=== PATIENT | female | born 1940 | race Hispanic/Latino ===

== ENCOUNTER 2019-01-11 08:41 | Day surgery (SDC) | payer MEDICARE ==
[~2019-01-11] VITALS: Ht 162.6 cm; Wt 89.8 kg
[~2019-01-11 08:41] MED LIST: ALEN70TA10 PO; CLON0.5T12 PO; DEXL30CA3 PO; FENT25PAT TD; FURO20TA4 PO; HYDR-4060 PO; LEVO175T9 PO; LISI-613 PO; SERT100T12 PO; SODIUM CHLORIDE 0.9% 1000ML 1,000 ML IV ONE
[2019-01-11 09:53] VITALS: BP 162/94
[2019-01-11] MEDS ORDERED: RANITIDINE (10:08)
[2019-01-11] MEDS ORDERED: PROPOFOL 10 MG/ML 20ML VIAL IV ONE (10:33)
[2019-01-11 10:49] VITALS: BP 131/59
[2019-01-11 10:55] VITALS: BP 116/65
[2019-01-11 11:00] VITALS: BP 119/65
[2019-01-11 11:05] VITALS: BP 100/73
[2019-01-11 11:15] VITALS: BP 157/76
== END 2019-01-11 11:30 | disposition home or self-care (01) ==
LOC: ENDO 08:41 → DAH 08:41 → ENDO 11:30
PROVIDERS: ATTEND Internal Medicine Gastroenterology
DX: K44.9 Diaphragmatic hernia without obstruction or gangrene (principal); K31.89 Other diseases of stomach and duodenum; K59.00 Constipation, unspecified; K57.30 Diverticulosis of large intestine without perforation or abscess without bleeding; K64.0 First degree hemorrhoids; Z86.010 Personal history of colon polyps; Z88.0 Allergy status to penicillin; Z88.1 Allergy status to other antibiotic agents; Z79.899 Other long term (current) drug therapy; Z82.49 Family history of ischemic heart disease and other diseases of the circulatory system; K21.9 Gastro-esophageal reflux disease without esophagitis; Z98.890 Other specified postprocedural states; I10 Essential (primary) hypertension; F32.9 Major depressive disorder, single episode, unspecified; E03.9 Hypothyroidism, unspecified; M81.0 Age-related osteoporosis without current pathological fracture; Z90.49 Acquired absence of other specified parts of digestive tract
CPT/HCPCS: 43239; 45378; 88305; A4606; J2704; J7030

== ENCOUNTER → 2020-05-27 | Outpatient (CLI) | payer MEDICARE ==
[~2020-05-27] MED LIST changes: -ALEN70TA10 PO; +ALEN70TA80 PO; -CLON0.5T12 PO; +CLON0.5T4 PO; -DEXL30CA3 PO; +RANITIDINE; -SODIUM CHLORIDE 0.9% 1000ML 1,000 ML IV ONE
== END | disposition home or self-care (01) ==
LOC: RAH 09:49
PROVIDERS: ATTEND Otolaryngology Plastic Surgery within the Head & Neck
DX: R49.0 Dysphonia (principal); R13.10 Dysphagia, unspecified; K21.9 Gastro-esophageal reflux disease without esophagitis
CPT/HCPCS: 74230; 92611

== ENCOUNTER 2021-03-17 07:09 | Inpatient (IN) | payer MEDICARE ==
[~2021-03-17] VITALS: Ht 152.4 cm; Wt 85.3 kg
[~2021-03-17 07:09] MED LIST changes: -LISI-613 PO; +LISI20TA24 PO; +SERT-440 PO; -SERT100T12 PO
[2021-03-17 07:45] LABS: BASOPHILS % (AUTO) 1.5 % (0.0-5.0); EOSINOPHILS % (AUTO) 2.9 % (0.0-8.0); HEMATOCRIT 38.5 % (36-48); LYMPHOCYTES % (AUTO) 32.5 % (21.0-51.0); MEAN CORPUSCULAR HEMOGLOBIN 30.5 pg (27.0-33.0); MEAN CORPUSCULAR HGB CONC 32.2 g/dL (32.0-36.0); MEAN CORPUSCULAR VOLUME 94.8 fL (79-99); MONOCYTES % (AUTO) 9.2 % (3.0-13.0); NEUTROPHILS % (AUTO) 53.7 % (40.0-77.0); PLATELET COUNT (AUTO) 194 K/uL (130-400); RED BLOOD CELL COUNT(AUTO) 4.06 MIL/uL (4.00-5.50); RED CELL DISTRIBUTION WIDTH 14.3 % (11.0-15.5); WHITE BLOOD COUNT (AUTO) 4.8 K/uL (4.8-10.8)
[2021-03-17 08:10] LABS: ALANINE AMINOTRANSFERASE 10 U/L (12-78); BILIRUBIN,TOTAL 0.7 mg/dL (0.2-1.0); CARBON DIOXIDE 29 mmol/L (21-32); CHLORIDE 105 mmol/L (101-111); CREATINE KINASE, TOTAL 127 U/L (21-232); CREATININE 0.8 mg/dL (0.5-1.5); GLOMERULAR FILTR. RATE CALC 73 mL/min (>60); GLUCOSE,RANDOM 85 mg/dL (70-105); POTASSIUM 5.7 mmol/L (3.5-5.1); SODIUM SERUM 141 mmol/L (136-145); UREA NITROGEN, BLOOD 14 mg/dL (7-18)
[2021-03-17 08:18] LABS: LIPASE < 50 U/L (114-286)
[2021-03-17] MEDS ORDERED: FAMOTIDINE 20MG VIAL IV ONE ×2 (08:30→09:35)
[2021-03-17] MEDS ORDERED: HYOSCYAMINE SULFATE 0.125 MG TAB.SUBL SL SCH (08:30)
[2021-03-17 08:34] LABS: ASPARTATE AMINOTRANSFERASE 26 U/L (10-37)
[2021-03-17 08:46] LABS: CRP QUANTITATIVE 12.9 mg/L (0.00-9.0)
[2021-03-17 08:52] LABS: APPEARANCE,URINE Clear (CLEAR); BILIRUBIN,URINE Negative (NEGATIVE); COLOR,URINE Yellow (YELLOW); GLUCOSE, URINE (UA) Negative (NEGATIVE); KETONES,URINE Negative (NEGATIVE); LEUKOCYTE ESTERASE ,URINE Negative (NEGATIVE); NITRATE,URINE Negative (NEGATIVE); OCCULT BLOOD,URINE Negative (NEGATIVE); PH,URINE 7.5 (5.0-8.0); PROTEIN,URINE Negative (NEGATIVE)
[2021-03-17] MEDS ORDERED: FAMOTIDINE 20MG TAB ONE (09:33)
[2021-03-17] MEDS ORDERED: HYDROCODONE/ACETAMINOPHEN 5/325 MG TAB ONE (09:38)
[2021-03-17] MEDS ORDERED: ASPIRIN 325MG TAB PO ONE (10:00)
[2021-03-17] MEDS ORDERED: NITROGLYCERIN 1GM OINT 1 INCH/1GM TD ONE (10:00)
[2021-03-17] MEDS: NITROGLYCERIN 1GM OINT 1 INCH/1GM TD SCH ×2 (10:56→19:41)
[2021-03-17] MEDS ORDERED: MAG/ALUM/SIMETH 30 ML UDCUP PO PRN (11:00)
[2021-03-17] MEDS ORDERED: ONDANSETRON 4MG INJ IV PRN (11:00)
[2021-03-17] MEDS ORDERED: DiphenhydrAMINE HCL 50 MG/ML VIAL IV PRN (11:00)
[2021-03-17] MEDS ORDERED: ACETAMINOPHEN 325 MG TAB PO PRN ×2 (11:00)
[2021-03-17] MEDS ORDERED: DIPHENHYDRAMINE HCL 25 MG CAPSULE PO PRN (11:00)
[2021-03-17] MEDS ORDERED: ACETAMINOPHEN WITH CODEINE 1 TAB TAB PO PRN ×2 (11:00)
[2021-03-17] MEDS ORDERED: NITROGLYCERIN 1GM OINT 1 INCH/1GM TD SCH (11:00)
[2021-03-17] MEDS ORDERED: MORPHINE 2 MG SYG IV PRN (11:00)
[2021-03-17] MEDS: HYDRALAZINE 20MG/ML VIAL IV PRN (11:23)
[2021-03-17] MEDS: 0.9%NACL 1000ML 1,000 ML IV SCH (12:03)
[2021-03-17] MEDS ORDERED: LEVO150C4 PO (13:31)
[2021-03-17] MEDS ORDERED: DEXL60CA3 PO (13:37)
[2021-03-17] MEDS ORDERED: SUCR1ORA15 PO (13:37)
[2021-03-17] MEDS ORDERED: LISINOPRIL 20 MG TABLET ONE (13:57)
[2021-03-17] MEDS ORDERED: FENTANYL 25 MCG/HR PATCH TD SCH (14:30)
[2021-03-17] MEDS ORDERED: CLONAZEPAM 0.5 MG TABLET PO PRN (14:30)
[2021-03-17] MEDS ORDERED: [UNRECOGNIZED DRUG - REMARK] MISC SCH (14:30)
[2021-03-17] MEDS: CLINDAMYCIN IVPB 600MG/50ML 50 ML IV SCH ×2 (15:27→23:53)
[2021-03-17] MEDS ORDERED: KAYEXALATE 15GM/60ML PO ONE (16:30)
[2021-03-17] MEDS ORDERED: IOHEXOL-350 75 ML VIAL IV ONE (16:47)
[2021-03-17] MEDS: SUCRALFATE 1 GM TABLET PO SCH (17:27)
[2021-03-17] MEDS ORDERED: FUROSEMIDE 20 MG TABLET PO SCH (21:00)
[2021-03-17] MEDS: FUROSEMIDE 20MG VIAL IV SCH (21:42)
[2021-03-17] MEDS: SERTRALINE HCL 50 MG TABLET PO SCH (21:42)
[2021-03-17] MEDS: FAMOTIDINE 20MG TAB PO SCH (21:42)
[2021-03-18] MEDS: HYDRALAZINE 20MG/ML VIAL IV PRN (02:25)
[2021-03-18] MEDS: NITROGLYCERIN 1GM OINT 1 INCH/1GM TD SCH (02:58)
[2021-03-18 03:25] LABS: HEMATOCRIT 41.5 % (36-48); MEAN CORPUSCULAR HEMOGLOBIN 30.3 pg (27.0-33.0); MEAN CORPUSCULAR HGB CONC 32.5 g/dL (32.0-36.0); MEAN CORPUSCULAR VOLUME 93.3 fL (79-99); RED BLOOD CELL COUNT(AUTO) 4.45 MIL/uL (4.00-5.50); WHITE BLOOD COUNT (AUTO) 7.1 K/uL (4.8-10.8)
[2021-03-18 03:30] VITALS: BP 148/53
[2021-03-18 03:44] LABS: ALBUMIN 3.3 g/dL (3.5-5.0); BILIRUBIN,TOTAL 0.9 mg/dL (0.2-1.0); CREATININE 0.9 mg/dL (0.5-1.5); POTASSIUM 3.3 mmol/L (3.5-5.1)
[2021-03-18] MEDS: LEVOTHYROXINE 150 MCG TABLET PO SCH (06:11)
[2021-03-18] MEDS: CLINDAMYCIN IVPB 600MG/50ML 50 ML IV SCH ×3 (06:11→22:29)
[2021-03-18] MEDS: 0.9%NACL 1000ML 1,000 ML IV SCH (06:24)
[2021-03-18 08:00] VITALS: BP 136/66
[2021-03-18] MEDS ORDERED: LISINOPRIL 20 MG TABLET PO SCH (09:00)
[2021-03-18] MEDS: FAMOTIDINE 20MG TAB PO SCH ×2 (09:00→20:24)
[2021-03-18] MEDS ORDERED: LISINOPRIL 40 MG TABLET PO SCH (09:00)
[2021-03-18] MEDS: SUCRALFATE 1 GM TABLET PO SCH ×3 (09:18→16:34)
[2021-03-18] MEDS: PANTOPRAZOLE 40 MG TAB DR PO SCH (09:18)
[2021-03-18] MEDS: ENOXAPARIN SODIUM 30 MG/0.3 ML SQ SCH (09:20)
[2021-03-18] MEDS: FUROSEMIDE 20MG VIAL IV SCH ×2 (09:24→20:24)
[2021-03-18 12:00] VITALS: BP 123/57
[2021-03-18 16:00] VITALS: BP 134/50
[2021-03-18] MEDS ORDERED: PHARMACY COMMUNICATION MISC SCH (16:00)
[2021-03-18] MEDS ORDERED: ASPIRIN 81MG CHEW TAB PO ONE (16:00)
[2021-03-18] MEDS ORDERED: KCL 20 MEQ ERTAB PO ONE (17:00)
[2021-03-18 19:43] VITALS: BP 108/55
[2021-03-18] MEDS ORDERED: HONEY 1 APPL/ML TUBE TP SCH (20:00)
[2021-03-18] MEDS: CARVEDILOL 3.125 MG TABLET PO SCH (20:24)
[2021-03-18] MEDS: SERTRALINE HCL 50 MG TABLET PO SCH (20:24)
[2021-03-18 23:44] VITALS: BP 112/42
[2021-03-19 03:39] LABS: BASOPHILS % (AUTO) 1.1 % (0.0-5.0); EOSINOPHILS % (AUTO) 3.1 % (0.0-8.0); HEMATOCRIT 37.1 % (36-48); LYMPHOCYTES % (AUTO) 27.9 % (21.0-51.0); MEAN CORPUSCULAR HEMOGLOBIN 29.9 pg (27.0-33.0); MEAN CORPUSCULAR HGB CONC 31.5 g/dL (32.0-36.0); MEAN CORPUSCULAR VOLUME 94.9 fL (79-99); NEUTROPHILS % (AUTO) 57.7 % (40.0-77.0); PLATELET COUNT (AUTO) 203 K/uL (130-400); RED BLOOD CELL COUNT(AUTO) 3.91 MIL/uL (4.00-5.50); RED CELL DISTRIBUTION WIDTH 14.3 % (11.0-15.5); WHITE BLOOD COUNT (AUTO) 5.5 K/uL (4.8-10.8)
[2021-03-19 03:55] LABS: ALBUMIN 2.8 g/dL (3.5-5.0); BILIRUBIN,TOTAL 0.7 mg/dL (0.2-1.0); CREATININE 1.3 mg/dL (0.5-1.5); CRP QUANTITATIVE 31.1 mg/L (0.00-9.0); MAGNESIUM 1.8 mg/dL (1.80-2.40); POTASSIUM 3.8 mmol/L (3.5-5.1); TOTAL PROTEIN, SERUM 6.9 g/dL (6.0-8.3)
[2021-03-19 03:59] VITALS: BP 113/43
[2021-03-19 04:00] LABS: HEMOGLOBIN A1C 5.1 % (4.0-6.0)
[2021-03-19 04:02] LABS: B-TYPE NATRIURETIC PEPTIDE 137 pg/mL (0-100)
[2021-03-19 04:54] LABS: ERYTHROCYTE SEDIMENTATION RATE 42 MM/HR (0-30)
[2021-03-19] MEDS: LEVOTHYROXINE 150 MCG TABLET PO SCH (06:07)
[2021-03-19] MEDS: CLINDAMYCIN IVPB 600MG/50ML 50 ML IV SCH (06:07)
[2021-03-19] MEDS: SUCRALFATE 1 GM TABLET PO SCH ×2 (07:58→11:37)
[2021-03-19] MEDS: PANTOPRAZOLE 40 MG TAB DR PO SCH (07:59)
[2021-03-19] MEDS: FAMOTIDINE 20MG TAB PO SCH (08:00)
[2021-03-19] MEDS: FUROSEMIDE 20MG VIAL IV SCH (08:00)
[2021-03-19] MEDS: ENOXAPARIN SODIUM 30 MG/0.3 ML SQ SCH (08:00)
[2021-03-19] MEDS: CARVEDILOL 3.125 MG TABLET PO SCH (08:06)
[2021-03-19 08:41] VITALS: BP 152/55
[2021-03-19] MEDS ORDERED: ASPIRIN 81MG CHEW TAB PO SCH (09:00)
[2021-03-19] MEDS ORDERED: LISINOPRIL 10 MG TABLET PO SCH (09:00)
[2021-03-19] MEDS ORDERED: CALCITONIN 3.7 ML AEROSOL NS SCH (12:00)
[2021-03-19 12:07] VITALS: BP 131/49
[2021-03-19] MEDS ORDERED: CARV3.1262 PO (13:19)
[2021-03-19] MEDS ORDERED: LISI10TA24 PO (13:19)
[2021-03-19] MEDS ORDERED: Calcitonin,Salmon,Synthetic NS (13:19)
[2021-03-19] MEDS ORDERED: FURO40TA5 PO (13:19)
[2021-03-19] MEDS ORDERED: ASPI-1005 PO (13:19)
[2021-03-19] MEDS ORDERED: ATOR10 PO (13:19)
[2021-03-19] MEDS ORDERED: HONEY 1 APPL/ML TUBE TP SCH (20:00)
[2021-03-24] MEDS ORDERED: ALENDRONATE SODIUM 70 MG PO SCH (09:00)
== END 2021-03-19 16:00 | disposition home or self-care (01) | DRG 281 ==
LOC: EDH 07:09 → EDHIP 07:10 → OBSVTOIN 07:10 → 4DH 03-18 02:15
PROVIDERS: ADMIT Hospitalist; ATTEND Hospitalist
DX: I16.0 Hypertensive urgency (principal); I21.A1 Myocardial infarction type 2; L97.929 Non-pressure chronic ulcer of unspecified part of left lower leg with unspecified severity; L03.116 Cellulitis of left lower limb; L03.115 Cellulitis of right lower limb; G89.4 Chronic pain syndrome; E03.9 Hypothyroidism, unspecified; E78.5 Hyperlipidemia, unspecified; I11.0 Hypertensive heart disease with heart failure; I50.9 Heart failure, unspecified; M19.90 Unspecified osteoarthritis, unspecified site; I73.9 Peripheral vascular disease, unspecified; I87.2 Venous insufficiency (chronic) (peripheral); I89.0 Lymphedema, not elsewhere classified; Z88.0 Allergy status to penicillin; Z88.8 Allergy status to other drugs, medicaments and biological substances; Z90.49 Acquired absence of other specified parts of digestive tract; Z91.19 Patient's noncompliance with other medical treatment and regimen; Z82.49 Family history of ischemic heart disease and other diseases of the circulatory system
CPT/HCPCS: 36415; 71275; 74176; 80053; 80061; 81003; 82550; 83036; 83605; 83690; 83735; 83874; 83880; 84145; 84484; 85025; 85027; 85378; 85651; 86140; 93005; 93306; 93356; 93925; 93970; 97039; G0378; J0360; J1650; J1940; J2405; J3490; J7030; Q9967

== ENCOUNTER 2023-05-23 13:02 | Inpatient (IN) | payer MEDICARE ==
[~2023-05-23] VITALS: Ht 160 cm; Wt 74.3 kg
[~2023-05-23 13:02] MED LIST changes: +ASPI-1005 PO; +ATOR10 PO; +CARV3.1262 PO; +Calcitonin,Salmon,Synthetic NS; +DEXL60CA3 PO; -FURO20TA4 PO; +FURO40TA5 PO; +LEVO150C4 PO; -LEVO175T9 PO; +LISI10TA24 PO; -LISI20TA24 PO; +SUCR1ORA15 PO
[2023-05-23 13:32] LABS: BASOPHILS # (AUTO) 0.04 K/uL (0.00-0.20); BASOPHILS % (AUTO) 0.9 % (0.0-5.0); EOSINOPHILS # (AUTO) 0.06 K/uL (0.00-0.70); EOSINOPHILS % (AUTO) 1.3 % (0.0-8.0); HEMATOCRIT 37.5 % (36-48); IMMATURE GRANULOCYTE ABSOLUTE 0.01 K/uL (0-1); LYMPHOCYTES # (AUTO) 1.5 K/uL (1.0-4.8); LYMPHOCYTES % (AUTO) 32.4 % (21.0-51.0); MEAN CORPUSCULAR HGB CONC 33.1 g/dL (32.0-36.0); MEAN CORPUSCULAR VOLUME 90.6 fL (79-99); MONOCYTES # (AUTO) 0.3 K/uL (0.1-1.0); MONOCYTES % (AUTO) 6.8 % (3.0-13.0); NEUTROPHILS # (AUTO) 2.7 K/uL (1.8-7.7); NEUTROPHILS % (AUTO) 58.4 % (40.0-77.0); PLATELET COUNT (AUTO) 166 K/uL (130-400); RED BLOOD CELL COUNT(AUTO) 4.14 MIL/uL (4.00-5.50); RED CELL DISTRIBUTION WIDTH 17.4 % (11.0-15.5); WHITE BLOOD COUNT (AUTO) 4.5 K/uL (4.8-10.8)
[2023-05-23 13:49] LABS: ALBUMIN 2.3 g/dL (3.5-5.0); BILIRUBIN,TOTAL 1.3 mg/dL (0.2-1.0); CREATININE 0.8 mg/dL (0.5-1.5); TOTAL PROTEIN, SERUM 6.6 g/dL (6.0-8.3)
[2023-05-23 13:58] LABS: POTASSIUM 2.1 mmol/L (3.5-5.1)
[2023-05-23] MEDS: POTASSIUM CHLORIDE 20MEQ/100ML 100 ML IV ONE (16:20)
[2023-05-23] MEDS: 0.9%NACL 1000ML 1,000 ML IV ONE (16:20)
[2023-05-23 17:02] LABS: APPEARANCE,URINE CLEAR (CLEAR); BILIRUBIN,URINE NEGATIVE (NEGATIVE); COLOR,URINE YELLOW (YELLOW); GLUCOSE, URINE (UA) NEGATIVE (NEGATIVE); KETONES,URINE NEGATIVE (NEGATIVE); LEUKOCYTE ESTERASE ,URINE NEGATIVE Leu/uL (NEGATIVE); NITRATE,URINE NEGATIVE (NEGATIVE); OCCULT BLOOD,URINE MODERATE (NEGATIVE); PH,URINE 5.5 (5.0-8.0); PROTEIN,URINE NEGATIVE (NEGATIVE); UROBILINOGEN,URINE 0.2 mg/dL (0.2-1.0)
[2023-05-23 17:04] LABS: ADD UA MICROSCOPIC YES
[2023-05-23 17:07] LABS: BACTERIA,URINE RARE /HPF (None Seen); MUCUS,URINE RARE LPF (None Seen); SQUAMOUS EPITHELIAL CELL,UR RARE /HPF (0-2); UNCLASSIFIED CRYSTAL 2 /HPF (None Seen)
[2023-05-23] MEDS ORDERED: DIPHENHYDRAMINE HCL 25 MG CAPSULE PO PRN (18:00)
[2023-05-23] MEDS ORDERED: ONDANSETRON 4MG INJ IV PRN (18:00)
[2023-05-23] MEDS ORDERED: GUAIFENESIN-DM 200/20 MG 10 ML PO PRN (18:00)
[2023-05-23] MEDS ORDERED: ACETAMINOPHEN 325 MG TAB PO PRN (18:00)
[2023-05-23] MEDS ORDERED: MAG/ALUM/SIMETH 30 ML UDCUP PO PRN (18:00)
[2023-05-23] MEDS ORDERED: NITROGLYCERIN 0.4 MG SL TAB SL PRN (18:00)
[2023-05-23] MEDS ORDERED: TRAM50TA4 PO (18:03)
[2023-05-23] MEDS ORDERED: FURO40TA5 PO (18:03)
[2023-05-23] MEDS ORDERED: LISI20TA24 PO (18:03)
[2023-05-23] MEDS: LEVOFLOXACIN 500 MG/D5W 100 ML 100 ML IV SCH (18:16)
[2023-05-23] MEDS: 0.9%NACL 1000ML 1,000 ML IV SCH (18:16)
[2023-05-23] MEDS: SERTRALINE HCL 50 MG TABLET PO SCH (21:00)
[2023-05-23 21:13] VITALS: O2SAT 94
[2023-05-23 21:15] VITALS: BP 125/53; PULSE 79; RESP 17
[2023-05-23] MEDS: FAMOTIDINE 20MG VIAL IV SCH (22:05)
[2023-05-23] MEDS: POTASSIUM CHLORIDE 10% ELIXIR 20 MEQ/15 ML UDCUP PO PRN (22:08)
[2023-05-23 23:56] VITALS: BP 118/65; PULSE 100; RESP 18
[2023-05-24] VITALS (7 sets, daily range): BP systolic 116–141; BP diastolic 46–64; PULSE 70–96; RESP 18–20; O2SAT 94
[2023-05-24] MEDS: LEVOTHYROXINE 150 MCG TABLET PO SCH (05:49)
[2023-05-24 07:21] LABS: POTASSIUM 2.6 mmol/L (3.5-5.1)
[2023-05-24 11:12] LABS: BASOPHILS # (AUTO) 0.03 K/uL (0.00-0.20); BASOPHILS % (AUTO) 0.7 % (0.0-5.0); EOSINOPHILS # (AUTO) 0.05 K/uL (0.00-0.70); EOSINOPHILS % (AUTO) 1.2 % (0.0-8.0); HEMATOCRIT 33.9 % (36-48); IMMATURE GRANULOCYTE ABSOLUTE 0.03 K/uL (0-1); LYMPHOCYTES # (AUTO) 1.4 K/uL (1.0-4.8); LYMPHOCYTES % (AUTO) 32.5 % (21.0-51.0); MEAN CORPUSCULAR HEMOGLOBIN 30.3 pg (27.0-33.0); MEAN CORPUSCULAR HGB CONC 32.7 g/dL (32.0-36.0); MEAN CORPUSCULAR VOLUME 92.6 fL (79-99); MONOCYTES # (AUTO) 0.3 K/uL (0.1-1.0); MONOCYTES % (AUTO) 7.7 % (3.0-13.0); NEUTROPHILS # (AUTO) 2.4 K/uL (1.8-7.7); NEUTROPHILS % (AUTO) 57.2 % (40.0-77.0); PLATELET COUNT (AUTO) 143 K/uL (130-400); RED BLOOD CELL COUNT(AUTO) 3.66 MIL/uL (4.00-5.50); RED CELL DISTRIBUTION WIDTH 17.4 % (11.0-15.5); WHITE BLOOD COUNT (AUTO) 4.2 K/uL (4.8-10.8)
[2023-05-24 11:45] LABS: CREATININE 0.6 mg/dL (0.5-1.5); TOTAL PROTEIN, SERUM 5.6 g/dL (6.0-8.3)
[2023-05-24] MEDS ORDERED: HONEY 1 APPL/ML TUBE TP SCH (15:30)
[2023-05-24] MEDS: KCL 20 MEQ ERTAB PO PRN (19:12)
[2023-05-25] VITALS (25 sets, daily range): BP systolic 106–126; BP diastolic 45–70; PULSE 91–108; RESP 14–18; O2SAT 94–99
[2023-05-25] MEDS: POTASSIUM CHLORIDE 20MEQ/100ML 100 ML IV PRN (00:40)
[2023-05-25 05:44] LABS: BASOPHILS # (AUTO) 0.05 K/uL (0.00-0.20); BASOPHILS % (AUTO) 1.1 % (0.0-5.0); EOSINOPHILS # (AUTO) 0.07 K/uL (0.00-0.70); EOSINOPHILS % (AUTO) 1.6 % (0.0-8.0); HEMATOCRIT 33.2 % (36-48); IMMATURE GRANULOCYTE ABSOLUTE 0.02 K/uL (0-1); LYMPHOCYTES # (AUTO) 1.6 K/uL (1.0-4.8); LYMPHOCYTES % (AUTO) 36.4 % (21.0-51.0); MEAN CORPUSCULAR HEMOGLOBIN 29.7 pg (27.0-33.0); MEAN CORPUSCULAR HGB CONC 31.9 g/dL (32.0-36.0); MONOCYTES # (AUTO) 0.4 K/uL (0.1-1.0); MONOCYTES % (AUTO) 8.2 % (3.0-13.0); NEUTROPHILS # (AUTO) 2.4 K/uL (1.8-7.7); NEUTROPHILS % (AUTO) 52.3 % (40.0-77.0); PLATELET COUNT (AUTO) 170 K/uL (130-400); RED BLOOD CELL COUNT(AUTO) 3.57 MIL/uL (4.00-5.50); RED CELL DISTRIBUTION WIDTH 18.1 % (11.0-15.5); WHITE BLOOD COUNT (AUTO) 4.5 K/uL (4.8-10.8)
[2023-05-25 05:58] LABS: BILIRUBIN,TOTAL 0.9 mg/dL (0.2-1.0); CREATININE 0.7 mg/dL (0.5-1.5); MAGNESIUM 1.4 mg/dL (1.80-2.40); POTASSIUM 3.7 mmol/L (3.5-5.1); TOTAL PROTEIN, SERUM 5.8 g/dL (6.0-8.3)
[2023-05-25] MEDS: MAGNESIUM 2GM PREMIX 50ML 50 ML IV PRN (10:16)
[2023-05-25] MEDS ORDERED: PROPOFOL 10 MG/ML 20ML VIAL IV ONE (12:59)
[2023-05-26] VITALS (8 sets, daily range): BP systolic 113–145; BP diastolic 48–64; PULSE 80–103; RESP 16–19; O2SAT 94
[2023-05-26 04:27] LABS: BASOPHILS # (AUTO) 0.02 K/uL (0.00-0.20); BASOPHILS % (AUTO) 0.5 % (0.0-5.0); EOSINOPHILS # (AUTO) 0.06 K/uL (0.00-0.70); EOSINOPHILS % (AUTO) 1.4 % (0.0-8.0); HEMATOCRIT 30.9 % (36-48); IMMATURE GRANULOCYTE ABSOLUTE 0.03 K/uL (0-1); LYMPHOCYTES # (AUTO) 1.4 K/uL (1.0-4.8); LYMPHOCYTES % (AUTO) 33.3 % (21.0-51.0); MEAN CORPUSCULAR HEMOGLOBIN 29.9 pg (27.0-33.0); MEAN CORPUSCULAR HGB CONC 31.7 g/dL (32.0-36.0); MEAN CORPUSCULAR VOLUME 94.2 fL (79-99); MONOCYTES # (AUTO) 0.4 K/uL (0.1-1.0); MONOCYTES % (AUTO) 10.1 % (3.0-13.0); NEUTROPHILS # (AUTO) 2.2 K/uL (1.8-7.7); PLATELET COUNT (AUTO) 124 K/uL (130-400); RED BLOOD CELL COUNT(AUTO) 3.28 MIL/uL (4.00-5.50); RED CELL DISTRIBUTION WIDTH 18.6 % (11.0-15.5); WHITE BLOOD COUNT (AUTO) 4.1 K/uL (4.8-10.8)
[2023-05-26 04:51] LABS: ALBUMIN 1.9 g/dL (3.5-5.0); BILIRUBIN,TOTAL 0.8 mg/dL (0.2-1.0); CREATININE 0.8 mg/dL (0.5-1.5); POTASSIUM 3.5 mmol/L (3.5-5.1); TOTAL PROTEIN, SERUM 5.5 g/dL (6.0-8.3)
[2023-05-26] MEDS: MEGESTROL 400 MG/10 ML UDCUP PO SCH (17:00)
[2023-05-27] VITALS (9 sets, daily range): BP systolic 113–150; BP diastolic 54–79; PULSE 76–100; RESP 18–19; O2SAT 94
[2023-05-27] MEDS: SODIUM HYPOCHLORITE 0.25% [HALF STRENGTH] 473 ML TOPICAL SOLN TP SCH (05:02)
[2023-05-27 05:47] LABS: BASOPHILS # (AUTO) 0.03 K/uL (0.00-0.20); BASOPHILS % (AUTO) 0.8 % (0.0-5.0); EOSINOPHILS # (AUTO) 0.06 K/uL (0.00-0.70); EOSINOPHILS % (AUTO) 1.6 % (0.0-8.0); HEMATOCRIT 30.7 % (36-48); IMMATURE GRANULOCYTE ABSOLUTE 0.02 K/uL (0-1); LYMPHOCYTES # (AUTO) 1.5 K/uL (1.0-4.8); MEAN CORPUSCULAR HGB CONC 32.6 g/dL (32.0-36.0); MEAN CORPUSCULAR VOLUME 92.2 fL (79-99); MONOCYTES # (AUTO) 0.3 K/uL (0.1-1.0); MONOCYTES % (AUTO) 8.9 % (3.0-13.0); NEUTROPHILS # (AUTO) 1.8 K/uL (1.8-7.7); NEUTROPHILS % (AUTO) 48.2 % (40.0-77.0); PLATELET COUNT (AUTO) 119 K/uL (130-400); RED BLOOD CELL COUNT(AUTO) 3.33 MIL/uL (4.00-5.50); RED CELL DISTRIBUTION WIDTH 18.6 % (11.0-15.5); WHITE BLOOD COUNT (AUTO) 3.7 K/uL (4.8-10.8)
[2023-05-27 06:01] LABS: ALBUMIN 1.8 g/dL (3.5-5.0); BILIRUBIN,TOTAL 0.7 mg/dL (0.2-1.0); CREATININE 0.8 mg/dL (0.5-1.5); POTASSIUM 3.3 mmol/L (3.5-5.1); TOTAL PROTEIN, SERUM 5.4 g/dL (6.0-8.3)
[2023-05-28 04:00] VITALS: BP 125/57; PULSE 83; RESP 17
[2023-05-28 06:39] LABS: ALBUMIN 1.7 g/dL (3.5-5.0); BILIRUBIN,TOTAL 0.6 mg/dL (0.2-1.0); CREATININE 0.7 mg/dL (0.5-1.5); POTASSIUM 3.8 mmol/L (3.5-5.1); TOTAL PROTEIN, SERUM 5.1 g/dL (6.0-8.3)
[2023-05-28 07:26] VITALS: O2SAT 94
[2023-05-28 08:00] VITALS: BP 122/44; PULSE 77; RESP 19
[2023-05-28 12:00] VITALS: BP 131/63; PULSE 79; RESP 17
[2023-05-28 16:00] VITALS: BP 108/49; PULSE 84; RESP 16
[2023-05-28] MEDS: HONEY 1 APPL/ML TUBE TP ONE (17:14)
[2023-05-28 20:00] VITALS: BP 132/58; PULSE 69; RESP 18; O2SAT 94
[2023-05-29] VITALS (8 sets, daily range): BP systolic 110–135; BP diastolic 47–62; PULSE 69–97; RESP 14–20; O2SAT 94
[2023-05-29] MEDS: ACETAMINOPHEN WITH CODEINE 1 TAB TAB PO PRN (09:44)
[2023-05-30] VITALS (17 sets, daily range): BP systolic 105–155; BP diastolic 45–73; PULSE 18–94; RESP 14–19; O2SAT 94–96
[2023-05-30 06:54] LABS: BASOPHILS # (AUTO) 0.03 K/uL (0.00-0.20); BASOPHILS % (AUTO) 0.8 % (0.0-5.0); EOSINOPHILS # (AUTO) 0.09 K/uL (0.00-0.70); EOSINOPHILS % (AUTO) 2.4 % (0.0-8.0); HEMATOCRIT 32.2 % (36-48); IMMATURE GRANULOCYTE ABSOLUTE 0.03 K/uL (0-1); LYMPHOCYTES # (AUTO) 1.2 K/uL (1.0-4.8); LYMPHOCYTES % (AUTO) 32.6 % (21.0-51.0); MEAN CORPUSCULAR HEMOGLOBIN 30.1 pg (27.0-33.0); MEAN CORPUSCULAR HGB CONC 31.7 g/dL (32.0-36.0); MONOCYTES # (AUTO) 0.3 K/uL (0.1-1.0); MONOCYTES % (AUTO) 8.8 % (3.0-13.0); NEUTROPHILS # (AUTO) 2.1 K/uL (1.8-7.7); NEUTROPHILS % (AUTO) 54.6 % (40.0-77.0); PLATELET COUNT (AUTO) 95 K/uL (130-400); RED BLOOD CELL COUNT(AUTO) 3.39 MIL/uL (4.00-5.50); RED CELL DISTRIBUTION WIDTH 18.6 % (11.0-15.5); WHITE BLOOD COUNT (AUTO) 3.8 K/uL (4.8-10.8)
[2023-05-30 07:08] LABS: ALBUMIN 1.7 g/dL (3.5-5.0); BILIRUBIN,TOTAL 0.6 mg/dL (0.2-1.0); CREATININE 0.7 mg/dL (0.5-1.5); POTASSIUM 3.9 mmol/L (3.5-5.1); TOTAL PROTEIN, SERUM 5.1 g/dL (6.0-8.3)
[2023-05-30 07:30] LABS: INR 1.07 (0.85-1.15); PROTHROMBIN TIME 12.4 SEC (9.6-11.6)
[2023-05-30] MEDS ORDERED: PROPOFOL 10 MG/ML 20ML VIAL IV ONE (13:45)
[2023-05-30] MEDS ORDERED: LIDOCAINE PF 100MG/5ML (2%) SYRINGE 5ML ONE (13:45)
[2023-05-30 14:11] LABS: C DIFFICILE TOXIN A/B Not Detected (Not Detected); ENTEROAGGREGATIVE ECOLI Not Detected (Not Detected); GIARDIA LAMBLIA Not Detected (Not Detected); PLESIOMONAS SHIGELOIDES Not Detected (Not Detected); SAPOVIRUS Not Detected (Not Detected); SHIGELLA/ENTEROINVASIVE E COLI Not Detected (Not Detected); VIBRIO Not Detected (Not Detected); VIBRIO CHOLERAE Not Detected (Not Detected)
[2023-05-30] MEDS ORDERED: PHARMACY COMMUNICATION MISC SCH ×2 (17:00→18:00)
[2023-05-31] VITALS (8 sets, daily range): BP systolic 117–142; BP diastolic 52–75; PULSE 66–102; RESP 16–20; O2SAT 94–95
[2023-05-31] MEDS: M.V.I. IV [ADULT] 10 ML, FOLIC ACID 1 MG, THIAMINE HCL 100 MG in 0.9%NACL 1000ML 1,000 ML IV SCH (09:00)
[2023-05-31] MEDS ORDERED: COMPOUND IV REFRIGERATED 1 EACH IVSOLN MISC PRN (09:00)
[2023-05-31 09:15] LABS: BASOPHILS # (AUTO) 0.03 K/uL (0.00-0.20); BASOPHILS % (AUTO) 0.6 % (0.0-5.0); EOSINOPHILS # (AUTO) 0.05 K/uL (0.00-0.70); HEMATOCRIT 35.9 % (36-48); IMMATURE GRANULOCYTE ABSOLUTE 0.02 K/uL (0-1); LYMPHOCYTES # (AUTO) 1.6 K/uL (1.0-4.8); LYMPHOCYTES % (AUTO) 33.5 % (21.0-51.0); MEAN CORPUSCULAR HEMOGLOBIN 29.8 pg (27.0-33.0); MONOCYTES # (AUTO) 0.4 K/uL (0.1-1.0); MONOCYTES % (AUTO) 7.6 % (3.0-13.0); NEUTROPHILS # (AUTO) 2.8 K/uL (1.8-7.7); NEUTROPHILS % (AUTO) 56.9 % (40.0-77.0); PLATELET COUNT (AUTO) 105 K/uL (130-400); RED BLOOD CELL COUNT(AUTO) 3.86 MIL/uL (4.00-5.50); RED CELL DISTRIBUTION WIDTH 18.6 % (11.0-15.5); WHITE BLOOD COUNT (AUTO) 4.9 K/uL (4.8-10.8)
[2023-05-31 09:38] LABS: ALBUMIN 1.8 g/dL (3.5-5.0); BILIRUBIN,TOTAL 0.7 mg/dL (0.2-1.0); CREATININE 0.6 mg/dL (0.5-1.5); POTASSIUM 3.9 mmol/L (3.5-5.1); TOTAL PROTEIN, SERUM 5.3 g/dL (6.0-8.3)
[2023-06-01] VITALS (8 sets, daily range): BP systolic 123–143; BP diastolic 50–74; PULSE 64–96; RESP 16–20; O2SAT 94–100
[2023-06-01 05:39] LABS: BASOPHILS # (AUTO) 0.02 K/uL (0.00-0.20); BASOPHILS % (AUTO) 0.4 % (0.0-5.0); EOSINOPHILS # (AUTO) 0.03 K/uL (0.00-0.70); EOSINOPHILS % (AUTO) 0.6 % (0.0-8.0); HEMATOCRIT 29.9 % (36-48); IMMATURE GRANULOCYTE ABSOLUTE 0.02 K/uL (0-1); LYMPHOCYTES # (AUTO) 1.5 K/uL (1.0-4.8); LYMPHOCYTES % (AUTO) 31.6 % (21.0-51.0); MEAN CORPUSCULAR HGB CONC 33.1 g/dL (32.0-36.0); MEAN CORPUSCULAR VOLUME 90.6 fL (79-99); MONOCYTES # (AUTO) 0.4 K/uL (0.1-1.0); MONOCYTES % (AUTO) 8.1 % (3.0-13.0); NEUTROPHILS # (AUTO) 2.8 K/uL (1.8-7.7); NEUTROPHILS % (AUTO) 58.9 % (40.0-77.0); PLATELET COUNT (AUTO) 97 K/uL (130-400); RED CELL DISTRIBUTION WIDTH 18.5 % (11.0-15.5); WHITE BLOOD COUNT (AUTO) 4.7 K/uL (4.8-10.8)
[2023-06-01 05:58] LABS: ALBUMIN 1.7 g/dL (3.5-5.0); BILIRUBIN,TOTAL 0.7 mg/dL (0.2-1.0); CREATININE 0.6 mg/dL (0.5-1.5); POTASSIUM 3.5 mmol/L (3.5-5.1); TOTAL PROTEIN, SERUM 4.9 g/dL (6.0-8.3)
[2023-06-02] VITALS (20 sets, daily range): BP systolic 121–163; BP diastolic 53–78; PULSE 68–114; RESP 17–21; O2SAT 94–100
[2023-06-02 06:06] LABS: BASOPHILS # (AUTO) 0.04 K/uL (0.00-0.20); BASOPHILS % (AUTO) 0.7 % (0.0-5.0); EOSINOPHILS # (AUTO) 0.06 K/uL (0.00-0.70); HEMATOCRIT 35.3 % (36-48); IMMATURE GRANULOCYTE ABSOLUTE 0.03 K/uL (0-1); LYMPHOCYTES # (AUTO) 1.9 K/uL (1.0-4.8); LYMPHOCYTES % (AUTO) 32.4 % (21.0-51.0); MEAN CORPUSCULAR HEMOGLOBIN 30.2 pg (27.0-33.0); MEAN CORPUSCULAR HGB CONC 32.3 g/dL (32.0-36.0); MEAN CORPUSCULAR VOLUME 93.6 fL (79-99); MONOCYTES # (AUTO) 0.5 K/uL (0.1-1.0); MONOCYTES % (AUTO) 7.7 % (3.0-13.0); NEUTROPHILS # (AUTO) 3.4 K/uL (1.8-7.7); NEUTROPHILS % (AUTO) 57.7 % (40.0-77.0); PLATELET COUNT (AUTO) 97 K/uL (130-400); RED BLOOD CELL COUNT(AUTO) 3.77 MIL/uL (4.00-5.50); RED CELL DISTRIBUTION WIDTH 18.6 % (11.0-15.5)
[2023-06-02 06:20] LABS: ALBUMIN 1.9 g/dL (3.5-5.0); BILIRUBIN,TOTAL 0.7 mg/dL (0.2-1.0); CREATININE 0.7 mg/dL (0.5-1.5); POTASSIUM 3.4 mmol/L (3.5-5.1); TOTAL PROTEIN, SERUM 5.3 g/dL (6.0-8.3)
[2023-06-02] MEDS ORDERED: LIDOCAINE PF 100MG/5ML (2%) SYRINGE 5ML ONE (13:44)
[2023-06-02] MEDS ORDERED: ROCURONIUM BROMIDE 10MG/1ML 5ML VL ONE (13:45)
[2023-06-02] MEDS ORDERED: FENTANYL CITRATE PF 50 MCG/1 ML 2ML VIAL ONE (13:45)
[2023-06-02] MEDS ORDERED: PROPOFOL 10 MG/ML 20ML VIAL IV ONE (13:45)
[2023-06-02] MEDS ORDERED: MIDAZOLAM HCL 1 MG/ML 2ML VIAL ONE (14:15)
[2023-06-02] MEDS ORDERED: KETAMINE 50MG/ML SYRINGE 50 MG/ML DISP.SYRIN ONE (14:21)
[2023-06-02] MEDS ORDERED: ALBUMIN (HUMAN) 5% 250 ML IV ONE (14:35)
[2023-06-02] MEDS ORDERED: EPHEDRINE SULFATE 50 MG/ML AMPULE ONE (14:53)
[2023-06-02] MEDS ORDERED: NEOSTIGMINE METHYLSULFATE 1MG/ML IV ONE (15:27)
[2023-06-02] MEDS ORDERED: GLYCOPYRROLATE 0.2 MG/ML 5 ML VIAL ONE (15:27)
[2023-06-02] MEDS: LORAZEPAM 2 MG/ML 1 ML VIAL IVP SCH (20:57)
[2023-06-03] VITALS (8 sets, daily range): BP systolic 102–118; BP diastolic 44–62; PULSE 82–104; RESP 18–20; O2SAT 96–98
[2023-06-03 05:47] LABS: BASOPHILS # (AUTO) 0.01 K/uL (0.00-0.20); BASOPHILS % (AUTO) 0.1 % (0.0-5.0); HEMATOCRIT 29.2 % (36-48); IMMATURE GRANULOCYTE ABSOLUTE 0.04 K/uL (0-1); LYMPHOCYTES # (AUTO) 1.1 K/uL (1.0-4.8); MEAN CORPUSCULAR HGB CONC 33.2 g/dL (32.0-36.0); MEAN CORPUSCULAR VOLUME 90.4 fL (79-99); MONOCYTES # (AUTO) 0.4 K/uL (0.1-1.0); MONOCYTES % (AUTO) 5.8 % (3.0-13.0); NEUTROPHILS # (AUTO) 5.8 K/uL (1.8-7.7); NEUTROPHILS % (AUTO) 78.6 % (40.0-77.0); PLATELET COUNT (AUTO) 85 K/uL (130-400); RED BLOOD CELL COUNT(AUTO) 3.23 MIL/uL (4.00-5.50); RED CELL DISTRIBUTION WIDTH 18.6 % (11.0-15.5); WHITE BLOOD COUNT (AUTO) 7.4 K/uL (4.8-10.8)
[2023-06-03 06:09] LABS: ALBUMIN 1.8 g/dL (3.5-5.0); BILIRUBIN,TOTAL 0.7 mg/dL (0.2-1.0); CREATININE 0.6 mg/dL (0.5-1.5); POTASSIUM 3.4 mmol/L (3.5-5.1); TOTAL PROTEIN, SERUM 4.8 g/dL (6.0-8.3)
[2023-06-03] MEDS ORDERED: VANCOMYCIN PROTOCOL PER PHARMACY IV SCH (09:30)
[2023-06-03] MEDS: VANCOMYCIN 1.25 GM/250 ML BAG 250 ML IV ONE ×2 (11:00→15:17)
[2023-06-03 17:41] LABS: INR 1.03 (0.85-1.15); PROTHROMBIN TIME 11.9 SEC (9.6-11.6)
[2023-06-03 17:42] LABS: PARTIAL THROMBOPLASTIN TIME 35.6 SEC (26.3-35.5)
[2023-06-04] VITALS (7 sets, daily range): BP systolic 105–136; BP diastolic 40–89; PULSE 76–116; RESP 18–20; O2SAT 79–100
[2023-06-04 05:33] LABS: BASOPHILS # (AUTO) 0.02 K/uL (0.00-0.20); BASOPHILS % (AUTO) 0.2 % (0.0-5.0); EOSINOPHILS # (AUTO) 0.02 K/uL (0.00-0.70); EOSINOPHILS % (AUTO) 0.2 % (0.0-8.0); HEMATOCRIT 30.8 % (36-48); IMMATURE GRANULOCYTE ABSOLUTE 0.04 K/uL (0-1); LYMPHOCYTES # (AUTO) 1.5 K/uL (1.0-4.8); LYMPHOCYTES % (AUTO) 17.8 % (21.0-51.0); MEAN CORPUSCULAR HEMOGLOBIN 30.2 pg (27.0-33.0); MEAN CORPUSCULAR HGB CONC 33.1 g/dL (32.0-36.0); MEAN CORPUSCULAR VOLUME 91.1 fL (79-99); MONOCYTES # (AUTO) 0.7 K/uL (0.1-1.0); NEUTROPHILS # (AUTO) 6.1 K/uL (1.8-7.7); NEUTROPHILS % (AUTO) 73.3 % (40.0-77.0); PLATELET COUNT (AUTO) 101 K/uL (130-400); RED BLOOD CELL COUNT(AUTO) 3.38 MIL/uL (4.00-5.50); RED CELL DISTRIBUTION WIDTH 18.6 % (11.0-15.5); WHITE BLOOD COUNT (AUTO) 8.3 K/uL (4.8-10.8)
[2023-06-04 05:54] LABS: ALBUMIN 1.8 g/dL (3.5-5.0); BILIRUBIN,TOTAL 0.7 mg/dL (0.2-1.0); CREATININE 0.8 mg/dL (0.5-1.5); POTASSIUM 3.3 mmol/L (3.5-5.1)
[2023-06-04] MEDS: VANCOMYCIN 750MG VIAL IVPB SCH (16:26)
[2023-06-04] MEDS: FAMOTIDINE 20MG TAB PEG SCH (20:24)
[2023-06-05] VITALS (7 sets, daily range): BP systolic 112–134; BP diastolic 44–94; PULSE 59–105; RESP 17–20; O2SAT 93–96
[2023-06-05 05:13] LABS: BASOPHILS # (AUTO) 0.01 K/uL (0.00-0.20); BASOPHILS % (AUTO) 0.2 % (0.0-5.0); EOSINOPHILS # (AUTO) 0.04 K/uL (0.00-0.70); EOSINOPHILS % (AUTO) 0.7 % (0.0-8.0); HEMATOCRIT 28.2 % (36-48); IMMATURE GRANULOCYTE ABSOLUTE 0.04 K/uL (0-1); LYMPHOCYTES % (AUTO) 19.5 % (21.0-51.0); MEAN CORPUSCULAR HGB CONC 32.6 g/dL (32.0-36.0); MEAN CORPUSCULAR VOLUME 91.9 fL (79-99); MONOCYTES # (AUTO) 0.4 K/uL (0.1-1.0); MONOCYTES % (AUTO) 8.1 % (3.0-13.0); NEUTROPHILS # (AUTO) 3.8 K/uL (1.8-7.7); NEUTROPHILS % (AUTO) 70.8 % (40.0-77.0); PLATELET COUNT (AUTO) 84 K/uL (130-400); RED BLOOD CELL COUNT(AUTO) 3.07 MIL/uL (4.00-5.50); RED CELL DISTRIBUTION WIDTH 18.7 % (11.0-15.5); WHITE BLOOD COUNT (AUTO) 5.3 K/uL (4.8-10.8)
[2023-06-05 05:32] LABS: ALBUMIN 1.5 g/dL (3.5-5.0); BILIRUBIN,TOTAL 0.6 mg/dL (0.2-1.0); CREATININE 0.7 mg/dL (0.5-1.5); POTASSIUM 3.5 mmol/L (3.5-5.1); TOTAL PROTEIN, SERUM 4.4 g/dL (6.0-8.3)
[2023-06-06] VITALS (8 sets, daily range): BP systolic 114–133; BP diastolic 48–59; PULSE 83–107; RESP 16–22; O2SAT 98–100
[2023-06-06 05:24] LABS: BASOPHILS # (AUTO) 0.01 K/uL (0.00-0.20); BASOPHILS % (AUTO) 0.2 % (0.0-5.0); EOSINOPHILS # (AUTO) 0.05 K/uL (0.00-0.70); EOSINOPHILS % (AUTO) 0.9 % (0.0-8.0); HEMATOCRIT 29.4 % (36-48); IMMATURE GRANULOCYTE ABSOLUTE 0.03 K/uL (0-1); LYMPHOCYTES % (AUTO) 18.3 % (21.0-51.0); MEAN CORPUSCULAR HEMOGLOBIN 30.4 pg (27.0-33.0); MEAN CORPUSCULAR HGB CONC 32.3 g/dL (32.0-36.0); MEAN CORPUSCULAR VOLUME 94.2 fL (79-99); MONOCYTES # (AUTO) 0.5 K/uL (0.1-1.0); MONOCYTES % (AUTO) 8.5 % (3.0-13.0); NEUTROPHILS # (AUTO) 4.1 K/uL (1.8-7.7); NEUTROPHILS % (AUTO) 71.6 % (40.0-77.0); PLATELET COUNT (AUTO) 86 K/uL (130-400); RED BLOOD CELL COUNT(AUTO) 3.12 MIL/uL (4.00-5.50); RED CELL DISTRIBUTION WIDTH 19.1 % (11.0-15.5); WHITE BLOOD COUNT (AUTO) 5.7 K/uL (4.8-10.8)
[2023-06-06 05:49] LABS: ALBUMIN 1.5 g/dL (3.5-5.0); BILIRUBIN,TOTAL 0.6 mg/dL (0.2-1.0); CREATININE 0.6 mg/dL (0.5-1.5); POTASSIUM 4.4 mmol/L (3.5-5.1); TOTAL PROTEIN, SERUM 4.5 g/dL (6.0-8.3)
== END 2023-06-06 21:40 | DRG 371 ==
LOC: EDH 13:02 → EDHIP 17:35 → 3BH 20:05 → 2CV 05-29 11:36 → 3BH 05-29 14:15
PROVIDERS: ADMIT Hospitalist; ATTEND Hospitalist
PROC: 0DB58ZX Excision of Esophagus, Via Natural or Artificial Opening Endoscopic, Diagnostic (ICD-10-PCS; 2023-05-25)
PROC: 0DB68ZX Excision of Stomach, Via Natural or Artificial Opening Endoscopic, Diagnostic (ICD-10-PCS; 2023-05-25)
PROC: 0DJ08ZZ Inspection of Upper Intestinal Tract, Via Natural or Artificial Opening Endoscopic (ICD-10-PCS; 2023-05-30)
PROC: 0DH60UZ Insertion of Feeding Device into Stomach, Open Approach (ICD-10-PCS; principal; 2023-06-02 14:14)
DX: A04.9 Bacterial intestinal infection, unspecified (principal); E43 Unspecified severe protein-calorie malnutrition; G93.41 Metabolic encephalopathy; L89.153 Pressure ulcer of sacral region, stage 3; R53.2 Functional quadriplegia; E86.0 Dehydration; E87.6 Hypokalemia; E03.9 Hypothyroidism, unspecified; E78.00 Pure hypercholesterolemia, unspecified; I10 Essential (primary) hypertension; D69.6 Thrombocytopenia, unspecified; B95.2 Enterococcus as the cause of diseases classified elsewhere; R13.12 Dysphagia, oropharyngeal phase; D64.9 Anemia, unspecified; F32.A Depression, unspecified; K20.80 Other esophagitis without bleeding; K29.70 Gastritis, unspecified, without bleeding; R62.7 Adult failure to thrive; L89.616 Pressure-induced deep tissue damage of right heel; Z74.01 Bed confinement status; Z79.899 Other long term (current) drug therapy; Z88.0 Allergy status to penicillin; Z90.49 Acquired absence of other specified parts of digestive tract; Z68.29 Body mass index [BMI] 29.0-29.9, adult; Z88.1 Allergy status to other antibiotic agents; R13.10 Dysphagia, unspecified; K25.9 Gastric ulcer, unspecified as acute or chronic, without hemorrhage or perforation
CPT/HCPCS: 36415; 36569; 43235; 43239; 70450; 71045; 74230; 76700; 80053; 80202; 81001; 82140; 82948; 83735; 84132; 85025; 85610; 85730; 87040; 87070; 87077; 87186; 87507; 88305; 88312; 92610; 92611; 93971; 96365; C1894; G0378; J1956; J2001; J2060; J2250; J2704; J2710; J3010; J3411; J3475; J3480; J3490; J7030; P9045; 3370; A4215; A4221; A4222; A4223; A4620; A4930; A7002; B4088; J3370